=== PATIENT | female | born 1990 | race American Indian/Alaskan Native ===

== ENCOUNTER 2017-10-05 06:44 | Emergency (ER) | payer SELFPAY ==
--- NOTE | 2017-10-05 07:58 | XRay Report ---
LEFT FOOT, 2 views: History: Swelling and pain. The bony architecture is intact. Bony alignment is normal. No soft tissue abnormalities are seen. The joint spaces appear preserved. IMPRESSION: Unremarkable left foot.
--- NOTE | 2017-10-05 08:59 | Emergency Department Report ---
ED Extremity Problem HPI - General Chief complaint: Extremity Injury, Lower Stated complaint: LT FOOT INJURY Source: patient Mode of arrival: Wheelchair Limitations: No Limitations - History of Present Illness Initial comments: 27 y/o nontoxic in appearance F presents to the ER complaining of left dorsal aspect of the foot pain. She states that her sister fell on her left foot about 3 AM this morning. She states that her sister is a pretty heavy person. She admits to pain and swelling at the site on impact. 10/10 in severity pain. She states that she has some throbbing which increases with standing. No numbness or tingling. LMP- 1 month ago NKDA. YI Complaint: extremity pain, extremity swelling -: days(s) (1) Location: left, lower extremity Severity scale (0 -10): 10 Quality: stabbing, aching Consistency: constant Worsens with: weight bearing - Related Data Previous Rx's Medication Instructions Recorded Last Taken Type Diclofenac Sodium 50 mg PO BID PRN #20 tablet. 10/05/17 Unknown Rx Allergies Allergy/AdvReac Type Severity Reaction Status Date / Time No Known Allergies Allergy Unverified 10/05/17 07:12 ED Review of Systems ROS: Stated complaint: LT FOOT INJURY Other details as noted in HPI Constitutional: denies: chills, fever Eyes: denies: eye pain, eye discharge, vision change Respiratory: denies: cough, shortness of breath, wheezing Cardiovascular: denies: chest pain, palpitations Musculoskeletal: joint swelling, arthralgia, myalgia, other (of the left dorsal foot) Skin: other (mild swelling of the left dorsal foot) Neurological: denies: headache, weakness, paresthesias Psychiatric: denies: anxiety, depression Hematological/Lymphatic: denies: easy bleeding, easy bruising ED Past Medical Hx - Past Medical History Previous Medical History?: No - Surgical History Past Surgical History?: No - Social History Smoking Status: Never Smoker Substance Use Type: None - Medications Home Medications: Home Medications Medication Instructions Recorded Confirmed Last Taken Type Diclofenac Sodium 50 mg PO BID PRN #20 tablet. 10/05/17 Unknown Rx ED Physical Exam - General Limitations: No Limitations General appearance: alert, in no apparent distress - Head Head exam: Present: atraumatic, normocephalic - Eye Eye exam: Present: normal appearance - ENT ENT exam: Present: mucous membranes moist - Neck Neck exam: Present: normal inspection - Respiratory Respiratory exam: Present: normal lung sounds bilaterally. Absent: respiratory distress - Cardiovascular Cardiovascular Exam: Present: regular rate, normal rhythm. Absent: systolic murmur, diastolic murmur, rubs, gallop - Extremities Exam Extremities exam: Present: other (there is a quarter-sized area of tenderness and raised area contusion at the dorsal aspect of the left foot, sensation and pulses are WNL, ROM is full but increases with movement) - Expanded Lower Extremity Exam Left Hip exam: Present: normal inspection, full ROM Upper Leg exam: Present: normal inspection, full ROM Knee exam: Present: normal inspection, full ROM Lower Leg exam: Present: normal inspection, full ROM Ankle exam: Present: normal inspection, full ROM Foot/Toe exam: Present: swelling (left dorsal aspect, contusion and ttp) Neuro vascular tendon exam: Present: no vascular compromise Gait: Positive: observed and limited by pain 1 - quarter-sized contusion noted - Back Exam Back exam: Present: normal inspection - Neurological Exam Neurological exam: Present: alert, oriented X3, CN II-XII intact - Psychiatric Psychiatric exam: Present: normal affect, normal mood - Skin Skin exam: Present: warm, dry, intact, normal color. Absent: rash ED Course Vital Signs 10/05/17 10/05/17 07:12 09:51 Temperature 98.8 F 98 F Pulse Rate 83 76 Respiratory 16 16 Rate Blood Pressure 104/44 Blood Pressure 119/57 [Right] O2 Sat by Pulse 98 98 Oximetry ED Medical Decision Making - Radiology Data Radiology results: report reviewed left foot xray- unremarkable study - Medical Decision Making Imaging of the affected left foot was unremarkable, I have given pt Toradol 30 mg IM here in the ED that helped with the pain. She was given an JIGAR wrap and educated on RICE therapy. She was also given Diclofenac Sodium as needed at home for the pain. Pt was discharged in stable condition, alert and oriented, and in no resp distress. Referral to orthopedics provided for patient today. Non-toxic in appearance and vitals stable. Critical care attestation.: If time is entered above; I have spent that time in minutes in the direct care of this critically ill patient, excluding procedure time. ED Disposition Clinical Impression: Injury of left foot Qualifiers: Encounter type: initial encounter Qualified Code(s): S99.922A - Unspecified injury of left foot, initial encounter Contusion of left foot Qualifiers: Encounter type: initial encounter Qualified Code(s): S90.32XA - Contusion of left foot, initial encounter Disposition: TO HOME OR SELFCARE Is pt being admited?: No Does the pt Need Aspirin: No Condition: Stable Instructions: Contusion in Adults (ED), RICE Therapy (ED) Additional Instructions: Please take the Diclofenac as needed for the pain. RICE therapy and elevation of the foot will be helpful. Please follow-up with PCP within 1 week, orthopedic referral has been provided for you today if needed for continuing or worsening symptoms. Please return to the ER immediately if you presenting acutely worsen/progress. Prescriptions: Diclofenac Sodium 50 mg PO BID PRN #20 tablet.dr JACOBS Reason: pain Referrals: [facility] [Outside] - 3-5 Days [facility] [Outside] - 3-5 Days PRIMARY CAREMD [Primary Care Provider] - 3-5 Days ROBERT CONKLIN MD [Staff Physician] - 3-5 Days Forms: Work/School Release Form(ED)
[2017-10-05] MEDS ORDERED: TORADOL IM ONE (09:32)
[2017-10-05 09:52] VITALS: BP 119/57
== END 2017-10-05 10:02 | disposition home or self-care (01) ==
LOC: ED 06:44
DX: S90.32XA Contusion of left foot, initial encounter (principal); W03.XXXA Other fall on same level due to collision with another person, initial encounter; Y93.89 Activity, other specified; Y92.89 Other specified places as the place of occurrence of the external cause; Y99.8 Other external cause status
CPT/HCPCS: 73620; 81025; 96372; 99284; J1885

== ENCOUNTER 2018-06-11 02:31 | Inpatient (IN) | payer OTHER ==
[2018-06-11] MEDS ORDERED: PITOCin/NS 20 UNIT/1000ML DRIP 20,000 MILLIUNITS/1,000 ML BAG IV ONE (02:41)
[2018-06-11] MEDS ORDERED: SUBLIMAZE ONE (02:55)
[2018-06-11] MEDS ORDERED: XYLOCAINE 2% INFILTRATI ONE ×2 (03:03→03:11)
[2018-06-11] MEDS ORDERED: BRETHINE SUB-Q PRN (03:11)
[2018-06-11] MEDS ORDERED: TUCKS PAD TP PRN (03:11)
[2018-06-11] MEDS ORDERED: TYLENOL PO PRN (03:11)
[2018-06-11] MEDS ORDERED: SUBLIMAZE IV PRN (03:11)
[2018-06-11] MEDS ORDERED: PHENERGAN PO PRN (03:11)
[2018-06-11] MEDS ORDERED: PHENERGAN PR PRN (03:11)
[2018-06-11] MEDS ORDERED: ZOFRAN IV PRN (03:11)
[2018-06-11] MEDS ORDERED: BRETHINE IVP PRN (03:11)
[2018-06-11] MEDS ORDERED: BENADRYL PO PRN (03:11)
[2018-06-11] MEDS ORDERED: LANSINOH TP PRN (03:11)
[2018-06-11] MEDS ORDERED: MILK OF MAGNESIA PO PRN (03:11)
[2018-06-11] MEDS ORDERED: PERCOCET 5/325 PO PRN (03:11)
[2018-06-11] MEDS ORDERED: MINERAL OIL PO PRN (03:11)
[2018-06-11] MEDS ORDERED: DULCOLAX PR PRN (03:11)
--- NOTE | 2018-06-11 03:25 | History and Physical Report ---
History of Present Illness Date of examination: 06/11/18 Date of admission: 06/11/18 02:37 Chief complaint: contractions History of present illness: This is a 27 yo at 38 weeks MARICEL 06/25/18 came into triage complaining of ctx from [place]. No records available. Denies any decreased movement. She was noted to be 7-8/100/0 station. Past History Past Medical History: no pertinent history Past Surgical History: no surgical history Family/Genetic History: diabetes (mother) Social history: no significant social history, single. denies: smoking, alcohol abuse, prescription drug abuse - Obstetrical History Expected Date of Delivery: 06/25/18 Actual Gestation: 38 Week(s) 0 Day(s) : 2 Para: 1 Hx # Term Pregnancies: 1 Number of Pregnancies: 0 Spontaneous Abortions: 0 Induced : 0 Number of Living Children: 1 Medications and Allergies Allergies Allergy/AdvReac Type Severity Reaction Status Date / Time No Known Allergies Allergy Unverified 10/05/17 07:12 Home Medications Medication Instructions Recorded Confirmed Last Taken Type Diclofenac Sodium 50 mg PO BID PRN #20 tablet. 10/05/17 Unknown Rx Ferrous Sulfate 325 mg PO BID #60 tablet. 06/11/18 Unknown Rx Ibuprofen [Motrin] 600 mg PO Q8H PRN #30 tablet 06/11/18 Unknown Rx oxyCODONE /ACETAMINOPHEN [Percocet 1 tab PO Q6HR PRN #20 tablet 06/11/18 Unknown Rx 5/325] Active Meds: Active Medications Acetaminophen (Tylenol) 650 mg PO Q4H PRN PRN Reason: Pain MILD(1-3)/Fever >100.5/SRINIVASAN Bisacodyl (Dulcolax) 10 mg MI BID PRN PRN Reason: Constipation Diphenhydramine HCl (Benadryl) 25 mg PO Q6H PRN PRN Reason: Itching Diphtheria/Tetanus/Acell Pertussis (Boostrix) 0.5 ml IM .ONCE ONE Stop: 06/12/18 03:12 Ephedrine Sulfate (Ephedrine Sulfate) 10 mg IV Q2M PRN PRN Reason: Hypotension Fentanyl (Sublimaze) 100 mcg IV Q2H PRN PRN Reason: Labor Pain Lactated Ringer's (Lactated Ringers) 1,000 mls @ 125 mls/hr IV DIRECT CARISA Oxytocin/Sodium Chloride (Pitocin/Ns 20 Unit/1000ml Drip) 20 units in 1,000 mls @ 125 mls/hr IV DIRECT CARISA Oxytocin/Sodium Chloride (Pitocin/Ns 30 Unit/500ml) 30 units in 500 mls @ 1 mls /hr IV TITR CARISA; Protocol Ibuprofen (Motrin) 600 mg PO Q6H CARISA Lidocaine (Xylocaine 2%) 20 ml INFILTRATI ONCE ONE Stop: 06/11/18 03:12 Magnesium Hydroxide (Milk Of Magnesia) 30 ml PO HS PRN PRN Reason: Constipation Measles/Mumps/Rubella Vaccine Live (M-M-R Ii Vaccine) 0.5 ml SUB-Q .ONCE ONE Stop: 06/12/18 03:12 Mineral Oil (Mineral Oil) 30 ml PO QHS PRN PRN Reason: Constipation Multi-Ingredient Ointment (Lansinoh) 1 applic TP PRN PRN PRN Reason: Sore Nipples Multivitamins/Iron/Calcium ( Vitamin) 1 each PO QDAY CARISA Ondansetron HCl (Zofran) 4 mg IV Q8H PRN PRN Reason: Nausea And Vomiting Oxycodone/Acetaminophen (Percocet 5/325) 1 tab PO Q6H PRN PRN Reason: Pain, Moderate (4-6) Promethazine HCl (Phenergan) 25 mg MI Q6H PRN PRN Reason: Nausea And Vomiting Promethazine HCl (Phenergan) 25 mg PO Q6H PRN PRN Reason: Nausea And Vomiting Sodium Chloride (Sodium Chloride Flush Syringe 10 Ml) 10 ml IV PRN NR Terbutaline Sulfate (Brethine) 0.25 mg SUB-Q ONCE PRN PRN Reason: Hyperstimulation/Hypertonicity Terbutaline Sulfate (Brethine) 0.25 mg IVP ONCE PRN PRN Reason: Hyperstimulation/Hypertonicity Witch Ammy/Glycerin (Tucks Pad) 1 each TP PRN PRN PRN Reason: Hemorrhoid/cleansing/soothing Review of Systems All systems: negative Genitourinary: contractions - Vital Signs Vital signs: Vital Signs Pulse BP 78 145/87 06/11/18 03:12 06/11/18 03:12 Temp Pulse Resp BP Pulse Ox 78 145/87 06/11/18 03:12 06/11/18 03:12 - Physical Exam Breasts: Positive: normal Cardiovascular: Regular rate, Normal S1 Lungs: Positive: Clear to auscultation, Normal air movement Abdomen: Positive: normal appearance, soft, normal bowel sounds. Negative: distention, tenderness, guarding Genitourinary (Female): Positive: normal external genitalia, normal perenium Vulva: both: normal Cervix: Negative: lesion Uterus: Positive: normal size Anus/Rectum: Positive: normal perianal skin Extremities: Positive: normal Deep Tendon Reflex Grade: Normal +2 - Obstetrical FHR: auscultation normal Uterine Contraction Monitor Mode: Palpation Cervical Dilatation: 7 Cervical Effacement Percentage: 100 station: 0 Uterine Contraction Pattern: Regular Uterine Tone Measurement Phase: Contraction Uterine Contraction Intensity: Strong/Firm Results All other labs normal. Assessment and Plan A/P IUP 38 weeks vertex GBS unknown Active labor Prepare for vaginal delivery [place] patient/Walk in
--- NOTE | 2018-06-11 03:33 | Procedure Note ---
OB Delivery Note - Delivery Date of Delivery: 06/11/18 Surgeon: ALLIE BARRAGAN Estimated blood loss: 500cc - Vaginal Delivery presentation: vertex Delivery position: OA Intrapartum events: none, precipitous labor- <3hr Delivery induction: none Delivery monitor: none Route of delivery: Delivery placenta: spontaneous Delivery cord: nuchal cord Episiotomy: none Delivery laceration: 1st degree Delivery repair: vicryl Anesthesia: local Delivery comments: I was contacted by nurse for walkin patient at 7-8/100/0/. When I arrived it was noted that the baby was attended by DAYANNA Miranda and baby delivered in sac in bed at 0248. The cord was clamped and cut and handed to awaiting Peds staff. The placenta delivered spontaneously intact with 3 vessel cord at 0256 . A viable male infant with apgars 8 and 9 at 0248 . Weight 2762g Inspection of perineum showed a 1st degree repaired with 2-0 vicry in normal fashion. Prior to repair 3cc of lidocaine injected. Patient tolerated procedure well and both mom and baby bonding well. - A at 1 minute: 8 at 5 minutes: 9 Infant Gender: Male
[2018-06-11] MEDS ORDERED: SODIUM CHLORIDE FLUSH SYRINGE 10 ML IV NR (04:00)
[2018-06-11] MEDS ORDERED: PITOCin/NS 20 UNIT/1000ML DRIP 20 UNITS/1,000 ML BAG IV SCH (04:00)
[2018-06-11] MEDS ORDERED: LACTATED RINGERS 1,000 ML IV SCH (04:00)
[2018-06-11] MEDS ORDERED: PITOCin/NS 30 UNIT/500ML 30 UNITS/500 ML BAG IV SCH (04:00)
[2018-06-11 04:53] LABS: Hematocrit 31.2 % (30.3-42.9); Hemoglobin 10.7 gm/dl (10.1-14.3); Mean Corpuscular HGB Conc 34 % (30-34); Mean Corpuscular Hemoglobin 31 pg (28-32); Mean Corpuscular Volume 90 fl (79-97); Platelet Count 255 K/mm3 (140-440); Red Blood Count 3.46 M/mm3 (3.65-5.03); Red Cell Distribution Width 12.9 % (13.2-15.2)
[2018-06-11] MEDS: MOTRIN PO SCH ×4 (05:15→23:36)
[2018-06-11 05:23] LABS: Hepatitis C Virus Antibody Non-Reactive (NonReactive)
[2018-06-11 06:06] LABS: Bilirubin,Urine NEG (Negative); Blood,Urine LG (Negative); Color,Urine Red (Yellow); Urobilinogen,Urine < 2.0 mg/dL (<2.0)
[2018-06-11 06:07] LABS: Bacteria,Urine 1+ /HPF (Negative); RBC,Urine > 182.0 /HPF (0.0-6.0)
[2018-06-11 06:08] LABS: Rubella IgG Antibody Immune (Immune)
[2018-06-11 06:16] LABS: Amphetamine Screen,Urine PRESUMPTIVE NEGATIVE; Benzodiazepines Screen,Urine PRESUMPTIVE NEGATIVE; Cannabinoid Screen,Urine PRESUMPTIVE NEGATIVE; Cocaine Screen,Urine PRESUMPTIVE NEGATIVE; Methadone Screen,Urine PRESUMPTIVE NEGATIVE; Opiate Screen,Urine PRESUMPTIVE NEGATIVE
[2018-06-11] MEDS: PRENATAL VITAMIN PO SCH (10:25)
[2018-06-11 18:09] LABS: Hematocrit 30.1 % (30.3-42.9)
[2018-06-12] MEDS ORDERED: M-M-R II VACCINE SUB-Q ONE (06:00)
[2018-06-12] MEDS ORDERED: BOOSTRIX IM ONE (06:00)
[2018-06-12] MEDS: MOTRIN PO SCH ×3 (06:05→18:18)
--- NOTE | 2018-06-12 08:15 | Progress Note ---
Assessment and Plan - Patient Problems (1) Active labor at term Current Visit: Yes Status: Acute Plan to address problem: Patient doing well Will likely need to monitor patient for 48 hours because of unknown GBS status Subjective - Subjective Date of service: 06/12/18 Interval history: The patient is without any significant complaints. Her pain is well- controlled. Unsure of the patient's GBS status. Patient reports: appetite normal, voiding normally, pain well controlled Traer: doing well Objective - Vital Signs Latest vital signs: Vital Signs Temp Pulse Resp BP BP Pulse Ox 06/12/18 00:00 98.6 F 68 18 102/74 06/11/18 20:00 98.7 F 72 18 122/64 06/11/18 16:09 98.4 F 67 20 115/68 98 06/11/18 11:38 98.1 F 87 20 111/62 98 06/11/18 08:49 98.3 F 72 20 119/70 98 Intake and Output 06/11/18 06/12/18 06/12/18 22:59 06:59 14:59 Intake Total 420 300 Balance 420 300 Intake: Oral 120 Intake, Free Water 300 300 Other: Total, Intake Amount 120 # Voids Void 1 - Exam Uterus: Present: normal, firm - Labs Labs: Abnormal lab results 06/11/18 Range/Units 17:36 Hgb 10.0 L (10.1-14.3) gm/dl Hct 30.1 L (30.3-42.9) %
--- NOTE | 2018-06-12 08:16 | Discharge Summary ---
Providers - Providers Date of Admission: 06/11/18 02:37 Date of discharge: 06/13/18 Attending physician: ALLIE BARRAGAN MD Primary care physician: JUMPBASTING COLLAR BASTER Hospitalization Reason for admission: active labor Delivery: Discharge diagnosis: IUP at term delivered [place] baby: male Hospital course: The patient is a walk-in patient and was admitted to labor and delivery triage in active labor with advanced cervical dilatation. The patient had a spontaneous vaginal delivery. Her course was uncomplicated. Condition at discharge: Good Disposition: DC-01 TO HOME OR SELFCARE - Discharge Diagnoses (1) Active labor at term Status: Acute Plan - Discharge Medications Prescriptions: Ferrous Sulfate 325 mg PO BID #60 tablet. Ibuprofen [Motrin] 600 mg PO Q8H PRN #30 tablet PRN Reason: Pain oxyCODONE /ACETAMINOPHEN [Percocet 5/325] 1 tab PO Q6HR PRN #20 tablet PRN Reason: Pain - Provider Discharge Summary Activity: no sex for 6 weeks, no heavy lifting 4 weeks, no strenuous exercise Diet: routine Instructions: routine Additional instructions: [] Smoking cessation referral if applicable(refer to patient education folder for contact #) [] Refer to [facility] Booklet Call your doctor immediately for: * Fever > 100.5 * Heavy vaginal bleeding ( >1 pad per hour) * Severe persistent headache * Shortness of breath * Reddened, hot, painful area to leg or breast * Scheduled visit in 4 weeks - Follow up plan
[2018-06-12] MEDS: PRENATAL VITAMIN PO SCH (12:35)
[2018-06-13] MEDS: MOTRIN PO SCH
[2018-06-13 08:46] VITALS: BP 119/67
== END 2018-06-13 13:00 | disposition home or self-care (01) | DRG 775 ==
LOC: TRG 02:31 → LD 02:37 → OB 05:06
PROVIDERS: ADMIT Obstetrics & Gynecology; ATTEND Obstetrics & Gynecology
PROC: 10E0XZZ Delivery of Products of Conception, External Approach (ICD-10-PCS; principal; 2018-06-11)
PROC: 0HQ9XZZ Repair Perineum Skin, External Approach (ICD-10-PCS; 2018-06-11)
PROC: 3E0234Z Introduction of Serum, Toxoid and Vaccine into Muscle, Percutaneous Approach (ICD-10-PCS; 2018-06-12)
DX: O62.3 Precipitate labor (principal); Z3A.38 38 weeks gestation of pregnancy; Z37.0 Single live birth; Z83.3 Family history of diabetes mellitus; O70.0 First degree perineal laceration during delivery; Z23 Encounter for immunization
CPT/HCPCS: 36415; 80307; 81001; 85014; 85018; 85027; 85660; 86592; 86706; 86762; 86803; 86850; 86900; 86901; 87086; 87806; 90471; 90715; 99211; G0463; J2590; J3010

== ENCOUNTER 2021-10-14 09:29 | Emergency (ER) | payer SELFPAY ==
[2021-10-14] MEDS ORDERED: FLUORESCEIN 1 MG STRIP OP ONE (12:28)
[2021-10-14] MEDS ORDERED: TETRACAINE 0.5% OPHTH SOLN 4ML OU ONE (12:28)
--- NOTE | 2021-10-14 13:17 | Emergency Department Report ---
ED Eye Problem HPI - General Chief complaint: Eye Problems Stated complaint: POSS EYE INFECTION Time Seen by Provider: 10/14/21 11:48 Source: patient Mode of arrival: Ambulatory Limitations: No Limitations - History of Present Illness Initial comments: This is a 31-year-old female nontoxic, well nourished in appearance, no acute signs of distress presents to the ED with c/o of left eye with eyelid redness, itching and crusting that started 3 days ago. Patient stated she was playing with her kids and believes dust came in her eye and has been scratching it. Denies any foreign body sensation or floaters. Patient denies any eye pain. Patient denies any visual changes or decreased vision. Patient denies any fever, chills, nausea, vomiting, chest pain, breath, headache, stiff neck numbness or tingling. Patient denies any allergies. Patient stated last tetanus shot was in 2018. chief complaint: eye redness -: days(s) Location: left eye Place: street/outdoors If Injury: none Eye Symptoms: redness, foreign body sensation, itching Severity: mild Severity scale (0 -10): 3 If Pain, Quality: aching Consistency: constant Associated Symptoms: none. denies: headache, neck pain, nausea/vomiting, cough, rhinorrhea, fever, shortness of breath Treatments Prior to Arrival: none - Related Data Patient Tetanus UTD: Yes Previous Rx's Medication Instructions Recorded Last Taken Type Diclofenac Sodium 50 mg PO BID PRN #20 tablet. 10/05/17 Unknown Rx Ferrous Sulfate 325 mg PO BID #60 tablet. 06/11/18 Unknown Rx Ibuprofen [Motrin] 600 mg PO Q8H PRN #30 tablet 06/11/18 Unknown Rx oxyCODONE /ACETAMINOPHEN [Percocet 1 tab PO Q6HR PRN #20 tablet 06/11/18 Unknown Rx 5/325] Polymyxin B Sulf/Trimethoprim 2 drops OS TID 7 Days #1 bottle 10/14/21 Unknown Rx [Polytrim Eye Drops] cephALEXin [Keflex] 500 mg PO Q8HR #21 cap 10/14/21 Unknown Rx Allergies Allergy/AdvReac Type Severity Reaction Status Date / Time No Known Allergies Allergy Verified 10/14/21 09:49 ED Review of Systems ROS: Stated complaint: POSS EYE INFECTION Other details as noted in HPI Comment: All other systems reviewed and negative Constitutional: denies: chills, fever Eyes: eye pain. denies: eye discharge, vision change ENT: denies: ear pain, throat pain Respiratory: denies: cough, shortness of breath, wheezing Cardiovascular: denies: chest pain, palpitations Endocrine: no symptoms reported Gastrointestinal: denies: abdominal pain, nausea, diarrhea Genitourinary: denies: urgency, dysuria, discharge Musculoskeletal: denies: back pain, joint swelling, arthralgia Skin: denies: rash, lesions Neurological: denies: headache, weakness, paresthesias Psychiatric: denies: anxiety, depression Hematological/Lymphatic: denies: easy bleeding, easy bruising ED Past Medical Hx - Past Medical History Hx Hypertension: No Hx Diabetes: No Hx Deep Vein Thrombosis: No Hx Renal Disease: No Hx Sickle Cell Disease: No Hx Seizures: No Hx Asthma: No Hx HIV: No - Social History Smoking Status: Never Smoker Substance Use Type: None - Medications Home Medications: Home Medications Medication Instructions Recorded Confirmed Last Taken Type Diclofenac Sodium 50 mg PO BID PRN #20 tablet. 10/05/17 06/11/18 Unknown Rx Ferrous Sulfate 325 mg PO BID #60 tablet. 06/11/18 Unknown Rx Ibuprofen [Motrin] 600 mg PO Q8H PRN #30 tablet 06/11/18 Unknown Rx oxyCODONE /ACETAMINOPHEN [Percocet 1 tab PO Q6HR PRN #20 tablet 06/11/18 Unknown Rx 5/325] Polymyxin B Sulf/Trimethoprim 2 drops OS TID 7 Days #1 bottle 10/14/21 Unknown Rx [Polytrim Eye Drops] cephALEXin [Keflex] 500 mg PO Q8HR #21 cap 10/14/21 Unknown Rx ED Physical Exam - General Limitations: No Limitations General appearance: alert, in no apparent distress - Head Head exam: Present: atraumatic, normocephalic - Eye Eye exam: Present: normal appearance, PERRL, EOMI Pupils: Present: normal accommodation - Expanded Eye Exam Expanded Eyelids: Normal Inspection: Left, Erythema: Left (lower eyelid area) Pupils: Regular, Round: Left, Reactive: Left Sclera/Conjunctival: Normal Inspection: Left - Neck Neck exam: Present: normal inspection, full ROM. Absent: tenderness, meningismus, lymphadenopathy - Respiratory Respiratory exam: Absent: respiratory distress - Cardiovascular Cardiovascular Exam: Present: regular rate - Extremities Exam Extremities exam: Present: full ROM - Back Exam Back exam: Present: full ROM - Neurological Exam Neurological exam: Present: alert, oriented X3, normal gait - Psychiatric Psychiatric exam: Present: normal affect, normal mood - Skin Skin exam: Present: warm, dry, intact, normal color. Absent: rash - Other Other exam information: Under Dias lamp, I used fluorescein and tetracaine to examine cornea for corneal abrasion or foreign body, negative for foreign body noted upon exam. there was a small area in the lateral corneal area which is consistent with a small abrasion. ED Course Vital Signs 10/14/21 09:48 Temperature 98.4 F Pulse Rate 97 H Respiratory 17 Rate Blood Pressure 123/99 O2 Sat by Pulse 100 Oximetry - Reevaluation(s) Reevaluation #1: 10/14/21 13:34 Patient is speaking in full sentences with no signs of distress noted. ED Medical Decision Making - Medical Decision Making 31-year-old female that presents with left corneal abrasion with eyelid cellulitis. Patient is stable and was examined by me. Patient be treated with Keflex and Polytrim. Patient was instructed to follow-up with a deputy probation officer doctor in 2 days or if symptoms worsen and continue return to emergency room as soon as possible. At time of discharge, the patient does not seem toxic or ill in appearance. No acute signs of distress noted. Patient agrees to discharge treatment plan of care. No further questions noted by the patient. The patient was evaluated in the emergency department for symptoms described in the history of present illness. He/she was evaluated in the context of the global COVID-19 pandemic, which necessitated consideration that the patient might be at risk for infection with the virus that causes COVID-19. Institutional protocols and algorithms that pertain to the evaluation of patients at risk for COVID-19 are in a state of rapid change based on information released by regulatory bodies including the CDC and federal and state organizations. These policies and algorithms were followed during the patient's care in the emergency department. Please note that these policies, procedures and recommendations changed on a rapid basis. Critical care attestation.: If time is entered above; I have spent that time in minutes in the direct care of this critically ill patient, excluding procedure time. ED Disposition Clinical Impression: Left corneal abrasion Qualifiers: Encounter type: initial encounter Qualified Code(s): S05.02XA - Injury of conjunctiva and corneal abrasion without foreign body, left eye, initial encounter Cellulitis of eyelid Qualifiers: Laterality: left Qualified Code(s): H00.036 - Abscess of eyelid left eye, uns pecified eyelid Disposition: 01 HOME / SELF CARE / HOMELESS Is pt being admited?: No Does the pt Need Aspirin: No Condition: Stable Instructions: Corneal Abrasion Additional Instructions: Follow-up with a deputy probation officer doctor in 2 days or if symptoms worsen and continue return to emergency room as soon as possible. Prescriptions: cephALEXin [Keflex] 500 mg PO Q8HR #21 cap Polymyxin B Sulf/Trimethoprim [Polytrim Eye Drops] 2 drops OS TID 7 Days #1 bottle Referrals: BENITO MENDOZA MD [Staff Physician] - 2-3 Days PRIMARY CARE, [Primary Care Provider] - 2-3 Days Time of Disposition: 13:36
[2021-10-14 14:16] VITALS: BP 117/82
== END 2021-10-14 14:16 | disposition home or self-care (01) ==
LOC: ED 09:29
DX: S05.02XA Injury of conjunctiva and corneal abrasion without foreign body, left eye, initial encounter (principal); H00.036 Abscess of eyelid left eye, unspecified eyelid; X58.XXXA Exposure to other specified factors, initial encounter; Y93.89 Activity, other specified; Y92.89 Other specified places as the place of occurrence of the external cause; Y99.8 Other external cause status
CPT/HCPCS: 99282